=== PATIENT | female | born 1940 | race Caucasian/White ===

== ENCOUNTER 2018-02-24 17:22 | Observation (INO) | payer MEDICARE, OTHER ==
[~2018-02-24] VITALS: Ht 160 cm; Wt 94.1 kg
[~2018-02-24 17:22] MED LIST: DIVA500T52 PO; INSU100C14 SQ; INSU100V12 SQ; LANS30CA55 PO; LEVO150T11 PO; LOSA25TA16 PO; PRED10TA23 PO; PRED20TA3 PO; SUCR1ORA5 PO; WARF5TAB76 PO
[2018-02-24 18:09] LABS: BASOPHILS % (AUTO) 1.1 % (0.0-5.0); EOSINOPHILS % (AUTO) 1.6 % (0.0-8.0); HEMATOCRIT 43.8 % (36-48); LYMPHOCYTES % (AUTO) 38.7 % (21.0-51.0); MEAN CORPUSCULAR HEMOGLOBIN 31.8 pg (27.0-33.0); MEAN CORPUSCULAR HGB CONC 34.5 g/dL (32.0-36.0); MEAN CORPUSCULAR VOLUME 92.1 fL (79-99); MONOCYTES % (AUTO) 12.4 % (3.0-13.0); NEUTROPHILS % (AUTO) 46.2 % (40.0-77.0); NUCLEATED RED BLOOD CELLS 0.1 % (0.0-0.19); PLATELET COUNT (AUTO) 259 K/uL (130-400); RED BLOOD CELL COUNT(AUTO) 4.76 MIL/uL (4.00-5.50); RED CELL DISTRIBUTION WIDTH 15.2 % (11.0-15.5); WHITE BLOOD COUNT (AUTO) 8.9 K/uL (4.8-10.8)
[2018-02-24 18:19] LABS: CREATININE 1.2 mg/dL (0.5-1.5); POTASSIUM 3.9 mmol/L (3.5-5.1)
[2018-02-24 18:24] LABS: ALBUMIN 3.3 g/dL (3.5-5.0); BILIRUBIN,TOTAL 1.1 mg/dL (0.2-1.0); TOTAL PROTEIN, SERUM 6.3 g/dL (6.0-8.3)
[2018-02-24] MEDS ORDERED: SODIUM CHLORIDE 0.9% 1000ML 1,000 ML IV ONE (18:24)
[2018-02-24] MEDS ORDERED: METRONIDAZOLE 500MG/100ML BAG 100 ML ONE (23:24)
[2018-02-24] MEDS ORDERED: LEVOFLOXACIN 750 MG/D5W 150 ML 150 ML ONE (23:24)
[2018-02-25] MEDS: SODIUM CHLORIDE 0.9% 1000ML 1,000 ML IV SCH (02:00)
[2018-02-25] MEDS: LEVOFLOXACIN 500 MG/D5W 100 ML 100 ML IV SCH (02:00)
[2018-02-25] MEDS ORDERED: PHARMACY COMMUNICATION MISC SCH (02:00)
[2018-02-25] MEDS ORDERED: PROCHLORPERAZINE EDISYLATE 10 MG/2 ML VIAL IV PRN (02:00)
[2018-02-25 02:45] VITALS: BP 141/65
[2018-02-25] MEDS ORDERED: DEXTROSE 50%-WATER 50 ML DISP.SYRIN IV PRN (03:30)
[2018-02-25] MEDS ORDERED: GLUCAGON 1MG KIT 1 MG ML IM PRN (03:30)
[2018-02-25] MEDS: INSULIN HUMULIN R 100 UNIT/ML 3ML SQ SCH ×4 (06:33→21:00)
[2018-02-25 08:00] VITALS: BP 140/61
[2018-02-25] MEDS: METRONIDAZOLE 500 MG TABLET PO SCH ×2 (09:54→21:47)
[2018-02-25 11:59] VITALS: BP 118/58
[2018-02-25 16:00] VITALS: BP 110/69
[2018-02-25] MEDS ORDERED: CALCIUM CARBONATE 500 MG/5 ML ML PO PRN (16:45)
[2018-02-25 19:29] VITALS: BP 95/52
[2018-02-25] MEDS ORDERED: METO25TA6 PO (19:59)
[2018-02-25] MEDS ORDERED: RANO10003 PO (19:59)
[2018-02-25] MEDS ORDERED: FURO40TA5 PO (19:59)
[2018-02-25] MEDS ORDERED: FLUT1BLS IH (19:59)
[2018-02-25] MEDS ORDERED: INSU100I24 SQ (19:59)
[2018-02-25] MEDS ORDERED: GABA-531 PO (19:59)
[2018-02-25] MEDS ORDERED: POTA-79 PO (19:59)
[2018-02-25] MEDS ORDERED: SUCRALFATE 1 GM/10 ML PO PRN (20:00)
[2018-02-25] MEDS ORDERED: LIDOCAINE HCL 2% VISCOUS 30 ML, MAG HYDROX/AL HYDROX/SIMETH 30 ML, BELLADONNA-PHENOBARB... PO PRN ×3 (20:15)
[2018-02-25] MEDS ORDERED: PANTOPRAZOLE SODIUM 40 MG TABLET.DR PO SCH (20:15)
[2018-02-25] MEDS ORDERED: COMPOUND PO MISCELLANEOUS 1 EACH MISC MISC PRN (20:15)
[2018-02-25] MEDS ORDERED: ALBUTEROL SULFATE 0.083% 2.5 MG/3 ML INH IH PRN (20:15)
[2018-02-25] MEDS ORDERED: WARFARIN SODIUM 5 MG TAB PO SCH (20:15)
[2018-02-25] MEDS ORDERED: LIDOCAINE HCL 2% VISCOUS 60 ML, MAG HYDROX/AL HYDROX/SIMETH 60 ML, DICYCLOMINE HCL 40 MG PO PRN ×3 (20:30)
[2018-02-25] MEDS ORDERED: LOSARTAN 50 MG TABLET PO SCH (21:00)
[2018-02-25] MEDS ORDERED: GABAPENTIN 300 MG CAPSULE PO SCH (21:00)
[2018-02-25] MEDS ORDERED: INSULIN DEGLUDEC 20 UNIT SQ SCH (21:00)
[2018-02-25] MEDS ORDERED: PREDNISONE 5 MG TABLET PO SCH (21:00)
[2018-02-25] MEDS: RANOLAZINE 500 MG TAB.SR.12H PO SCH (21:48)
[2018-02-25] MEDS: METOPROLOL TARTRATE 25 MG TAB PO SCH (21:48)
[2018-02-25 23:30] VITALS: BP 91/47
[2018-02-26] MEDS: ALBUTEROL SULFATE 0.083% 2.5 MG/3 ML INH IH SCH ×3 (00:25→10:57)
[2018-02-26] MEDS: LEVOFLOXACIN 500 MG/D5W 100 ML 100 ML IV SCH (02:07)
[2018-02-26 03:46] VITALS: BP 88/50
[2018-02-26 05:03] LABS: INR 1.03 (0.85-1.15); PROTHROMBIN TIME 10.8 SEC (9.6-11.6)
[2018-02-26] MEDS ORDERED: BUDESONIDE 0.5 MG/2 ML INH IH SCH (06:00)
[2018-02-26] MEDS ORDERED: LEVOTHYROXINE 150 MCG TABLET PO SCH (06:30)
[2018-02-26] MEDS: INSULIN HUMULIN R 100 UNIT/ML 3ML SQ SCH ×2 (07:30→11:30)
[2018-02-26 08:24] VITALS: BP 90/50
[2018-02-26] MEDS ORDERED: PREDNISONE 5 MG TABLET PO SCH (09:00)
[2018-02-26] MEDS ORDERED: POTASSIUM CHLORIDE 20 MEQ ERTAB PO SCH (09:00)
[2018-02-26] MEDS: METOPROLOL TARTRATE 25 MG TAB PO SCH (09:00)
[2018-02-26] MEDS: RANOLAZINE 500 MG TAB.SR.12H PO SCH (09:49)
[2018-02-26] MEDS: METRONIDAZOLE 500 MG TABLET PO SCH (09:49)
[2018-02-26] MEDS ORDERED: INSULIN GLARGINE 100 UNITS/ML 10 ML VIAL SQ SCH (10:45)
[2018-02-26] MEDS ORDERED: METHYLPREDNISOLONE SOD SUCC 125MG/2ML VIAL IVP SCH (10:45)
[2018-02-26] MEDS ORDERED: INSULIN LISPRO 100 UNIT/ML 3ML SQ SCH (10:45)
[2018-02-26] MEDS ORDERED: SODIUM CHLORIDE 0.9% 500ML 500 ML IV SCH ×2 (10:45→12:45)
[2018-02-26] MEDS: SODIUM CHLORIDE 0.9% 1000ML 1,000 ML IV SCH ×2 (10:46→10:49)
[2018-02-26] MEDS ORDERED: METR500T4 PO (10:56)
[2018-02-26] MEDS ORDERED: PRED10TA3 PO (10:56)
[2018-02-26 12:20] VITALS: BP 107/50
[2018-02-26] MEDS ORDERED: WARFARIN SODIUM 5 MG TAB PO SCH (17:00)
== END 2018-02-26 16:55 | disposition home or self-care (01) ==
LOC: EDH 17:22 → EDHIP 02-25 01:00 → 3DH 02-25 01:59
PROVIDERS: ADMIT Internal Medicine; ATTEND Internal Medicine
DX: K56.7 Ileus, unspecified (principal); J44.9 Chronic obstructive pulmonary disease, unspecified; E03.9 Hypothyroidism, unspecified; K21.9 Gastro-esophageal reflux disease without esophagitis; M15.9 Polyosteoarthritis, unspecified; J30.9 Allergic rhinitis, unspecified; M81.0 Age-related osteoporosis without current pathological fracture; I25.10 Atherosclerotic heart disease of native coronary artery without angina pectoris; I13.10 Hypertensive heart and chronic kidney disease without heart failure, with stage 1 through stage 4 chronic kidney disease, or unspecified chronic kidney disease; N18.2 Chronic kidney disease, stage 2 (mild); E11.22 Type 2 diabetes mellitus with diabetic chronic kidney disease; E11.42 Type 2 diabetes mellitus with diabetic polyneuropathy; E11.65 Type 2 diabetes mellitus with hyperglycemia; E66.01 Morbid (severe) obesity due to excess calories; D68.69 Other thrombophilia; E78.2 Mixed hyperlipidemia; E86.0 Dehydration; G44.009 Cluster headache syndrome, unspecified, not intractable; G45.9 Transient cerebral ischemic attack, unspecified; I25.2 Old myocardial infarction; I82.401 Acute embolism and thrombosis of unspecified deep veins of right lower extremity; K57.30 Diverticulosis of large intestine without perforation or abscess without bleeding; M75.42 Impingement syndrome of left shoulder; T38.0X5A Adverse effect of glucocorticoids and synthetic analogues, initial encounter; F17.210 Nicotine dependence, cigarettes, uncomplicated; Z68.37 Body mass index [BMI] 37.0-37.9, adult; Z80.3 Family history of malignant neoplasm of breast; Z82.5 Family history of asthma and other chronic lower respiratory diseases; Z86.718 Personal history of other venous thrombosis and embolism; Z86.73 Personal history of transient ischemic attack (TIA), and cerebral infarction without residual deficits; Z90.49 Acquired absence of other specified parts of digestive tract; Z79.01 Long term (current) use of anticoagulants; Z79.4 Long term (current) use of insulin; Z83.3 Family history of diabetes mellitus; Z96.653 Presence of artificial knee joint, bilateral; Z86.010 Personal history of colon polyps
CPT/HCPCS: 36415 ×2; 71045; 74018; 74176; 80053; 82550; 82948 ×6; 83605; 84484; 85025; 85610; 87040 ×2; 93005; 94640 ×4; 94664; 96361; 96365; 96372; 96375; 97116; 97161; 99285; G0378 ×40; G8978; G8979; G8980; G8981; G8982; G8983; J1815; J1956 ×2; J2930; J3490; J7030; J7040; J7512 ×2

== ENCOUNTER 2018-07-18 16:00 | Observation (INO) | payer OTHER ==
[~2018-07-18] VITALS: Ht 162.6 cm; Wt 85.5 kg
[2018-07-18 12:11] LABS: EOSINOPHILS % (AUTO) 3.2 % (0.0-8.0); HEMATOCRIT 44.7 % (36-48); LYMPHOCYTES % (AUTO) 33.9 % (21.0-51.0); MEAN CORPUSCULAR HEMOGLOBIN 31.3 pg (27.0-33.0); MEAN CORPUSCULAR HGB CONC 33.5 g/dL (32.0-36.0); MEAN CORPUSCULAR VOLUME 93.7 fL (79-99); MONOCYTES % (AUTO) 8.5 % (3.0-13.0); NEUTROPHILS % (AUTO) 53.4 % (40.0-77.0); PLATELET COUNT (AUTO) 310 K/uL (130-400); RED BLOOD CELL COUNT(AUTO) 4.77 MIL/uL (4.00-5.50); RED CELL DISTRIBUTION WIDTH 14.3 % (11.0-15.5); WHITE BLOOD COUNT (AUTO) 7.9 K/uL (4.8-10.8)
[2018-07-18 12:19] VITALS: BP 118/61
[2018-07-18 12:22] LABS: INR 1.81 (0.85-1.15); POTASSIUM 4.3 mmol/L (3.5-5.1); PROTHROMBIN TIME 18.8 SEC (9.6-11.6)
[~2018-07-18 16:00] MED LIST changes: +ALBU18HF7 IH; +ALBU2.5V2 IH; +ASPI-1181 PO; +CALCITONIN SALMON NASAL; +DILT30 PO; -DIVA500T52 PO; +ENOX80DI8 SQ; +FLUT1BLS IH; +FOLIC ACID PO; +FURO40TA5 PO; +GABA-529 PO; -INSU100C14 SQ; +INSU100I24 SQ; -INSU100V12 SQ; +ISOS20TA7 PO; -LANS30CA55 PO; -LEVO150T11 PO; +LEVO175T9 PO; -LOSA25TA16 PO; +MAGN400C PO; +MELA10CA2 PO; +METO25TA6 PO; +NITR0.4T50 SL; +PANT40TA25 PO; +POTA20TA12 PO; -PRED10TA23 PO; -PRED20TA3 PO; +PRED5TAB PO; +PREDNISONE PO; +RANO10003 PO; -SUCR1ORA5 PO; +SUCR1TAB2 PO; +UBID100C10 PO; +VITAMIN D3 PO; +WARF2.5T47 PO
[2018-07-19] MEDS ORDERED: CLINDAMYCIN 900 MG/D5% WATER 50 ML IV SCH (06:00)
--- NOTE | 2018-07-19 11:18 | NUR ---
NOTE REPORTED PT/INR, ORDERS TO REPEAT IN AM.
[2018-07-20] VITALS (31 sets, daily range): BP systolic 66–118; BP diastolic 39–82
[2018-07-20] MEDS ORDERED: BUPIVACAINE/EPI/PF 0.25% 50 ML VIAL ONE (06:42)
[2018-07-20] MEDS ORDERED: DURAMORPH PF1 MG/ML 10ML AMP IV ONE (06:42)
[2018-07-20] MEDS ORDERED: BACITRACIN 50,000 UNIT VIAL ONE (06:42)
[2018-07-20] MEDS ORDERED: THROMBIN-JMI 20000 UNIT KIT TP ONE (06:43)
[2018-07-20] MEDS ORDERED: CLINDAMYCIN 900 MG/D5% WATER 50 ML IV ONE (06:49)
[2018-07-20] MEDS ORDERED: SODIUM CHLORIDE 0.9% 1000ML 1,000 ML IV ONE (06:49)
[2018-07-20] MEDS ORDERED: LIDOCAINE PF 2% 5ML ABBOJECT ONE (06:51)
[2018-07-20] MEDS ORDERED: SUCCINYLCHOLINE 200MG/10ML SYR ONE (06:51)
[2018-07-20] MEDS ORDERED: GLYCOPYRROLATE 1 MG/5 ML SYRINGE ONE (06:52)
[2018-07-20] MEDS ORDERED: NEOSTIGMINE 5MG/5ML SYR IV ONE (06:52)
[2018-07-20] MEDS ORDERED: PROPOFOL 10 MG/ML 20ML VIAL IV ONE (06:52)
[2018-07-20] MEDS ORDERED: FENTANYL CITRATE PF 50 MCG/1 ML 2ML VIAL ONE ×2 (06:52→08:46)
[2018-07-20] MEDS ORDERED: ONDANSETRON HCL 4 MG/2 ML VIAL ONE (06:52)
[2018-07-20] MEDS ORDERED: MIDAZOLAM HCL 1 MG/ML 2ML VIAL ONE (06:52)
[2018-07-20] MEDS ORDERED: DEXAMETHASONE SOD PHOSPHATE 10MG/ML 1ML VIAL ONE ×2 (06:52→06:57)
[2018-07-20] MEDS ORDERED: ROCURONIUM 10MG/1ML SYR 10 MG/ML ML ONE (06:52)
[2018-07-20] MEDS ORDERED: PHENYLEPHRINE HCL 10 MG/ML 1ML VIAL IV ONE ×2 (06:57→08:05)
[2018-07-20 07:31] LABS: INR 1.14 (0.85-1.15); PROTHROMBIN TIME 11.9 SEC (9.6-11.6)
[2018-07-20] MEDS ORDERED: EPHEDRINE SULFATE 50 MG/ML AMPULE ONE (07:38)
[2018-07-20] MEDS ORDERED: EPINEPHRINE 1 MG/ML AMPULE ONE (08:08)
[2018-07-20] MEDS ORDERED: DOPAMINE HCL 400 MG/D5%-WATER 250 ML IV ONE (08:14)
[2018-07-20] MEDS ORDERED: LIDOCAINE HCL 4% LTA SOL 4 ML VIAL ONE (10:23)
[2018-07-20] MEDS: LACTATED RINGERS 1000ML 1,000 ML IV SCH (10:47)
[2018-07-20] MEDS ORDERED: PROMETHAZINE HCL 25 MG/ML 1ML AMPULE IM PRN (11:00)
[2018-07-20] MEDS: CLINDAMYCIN 900 MG/D5% WATER 50 ML IV SCH ×2 (11:00→14:53)
[2018-07-20] MEDS ORDERED: HYDROCODONE/ACETAMINOPHEN 5/325 MG TAB PO PRN (11:00)
[2018-07-20] MEDS ORDERED: SUB TO ALBUTEROL 2.5MG/3ML NEBULES PER P&T IH PRN (11:00)
[2018-07-20] MEDS ORDERED: NITROGLYCERIN 0.4 MG SL TAB SL PRN (11:00)
[2018-07-20] MEDS ORDERED: NON-FORMULARY MEDICATION 1 EACH (Albuterol Sulfate 2.5 MG) IH PRN (11:00)
[2018-07-20] MEDS ORDERED: SODIUM CHLORIDE 0.9% 10 ML VIAL IVP PRN (11:00)
[2018-07-20] MEDS ORDERED: MORPHINE SULFATE 2 MG/ML 1ML SYG IVP PRN (11:00)
[2018-07-20] MEDS: DEXAMETHASONE SOD PHOSPHATE 4 MG/ML 1ML VIAL IVP SCH ×3 (11:00→22:51)
[2018-07-20] MEDS: CALCITONIN 3.7 ML AEROSOL NS SCH (12:00)
[2018-07-20] MEDS: IPRATROPIUM/ALBUTEROL SULFATE 3 ML SOLUTION IH SCH ×2 (12:00→19:51)
[2018-07-20] MEDS: FUROSEMIDE 40 MG TABLET PO SCH (12:00)
--- NOTE | 2018-07-20 15:18 | NUR ---
DCP CM met with pt discussed dc plans. Pt is independent prior to surgery, lives at home alone. Has a private caregiver daily, walker, cane, rollator walker, handicapped shower. Denies any other equipments/services. Pt feels safe to go back home, still drives, caregiver able to assist with transportation and needs as necessary. Offered poss short term placement for rehab, pt declined. DC plan to home once stable. CM to cont to follow up. Addendum: 07/20/18 at 1521 by COLT TIWARI LVN CM Amended: Links added.
[2018-07-20] MEDS ORDERED: NAPROXEN 500 MG TABLET PO PRN (16:45)
[2018-07-20] MEDS: BUDESONIDE 0.5 MG/2 ML INH IH SCH (19:51)
[2018-07-20] MEDS ORDERED: INSULIN DEGLUDEC 30 UNIT SQ SCH (21:00)
[2018-07-20] MEDS ORDERED: MELATONIN 10 MG PO SCH (21:00)
[2018-07-20] MEDS ORDERED: PREDNISONE 5 MG TABLET PO SCH (21:00)
[2018-07-20] MEDS: RANOLAZINE 500 MG TAB.SR.12H PO SCH (21:00)
[2018-07-20] MEDS: DILTIAZEM HCL 60 MG TABLET PO SCH (22:44)
[2018-07-20] MEDS: GABAPENTIN 100 MG CAPSULE PO SCH (22:44)
[2018-07-20] MEDS: METOPROLOL TARTRATE 25 MG TAB PO SCH (22:44)
[2018-07-20] MEDS: INSULIN HUMULIN R 100 UNIT/ML 3ML SQ SCH (22:53)
[2018-07-21] VITALS: BP 119/58
[2018-07-21] MEDS: LACTATED RINGERS 1000ML 1,000 ML IV SCH ×2 (00:07→11:50)
[2018-07-21] MEDS: IPRATROPIUM/ALBUTEROL SULFATE 3 ML SOLUTION IH SCH ×3 (00:25→10:47)
[2018-07-21 04:00] VITALS: BP 113/55
[2018-07-21] MEDS: INSULIN HUMULIN R 100 UNIT/ML 3ML SQ SCH ×3 (06:12→16:58)
[2018-07-21] MEDS ORDERED: LEVOTHYROXINE 75 MCG TABLET ONE (06:15)
[2018-07-21] MEDS ORDERED: PANTOPRAZOLE SODIUM 40 MG TABLET.DR PO ONE (06:15)
[2018-07-21] MEDS ORDERED: LEVOTHYROXINE 100 MCG TABLET ONE (06:16)
[2018-07-21] MEDS: DEXAMETHASONE SOD PHOSPHATE 4 MG/ML 1ML VIAL IVP SCH ×3 (06:26→16:59)
[2018-07-21] MEDS: BUDESONIDE 0.5 MG/2 ML INH IH SCH (06:37)
[2018-07-21] MEDS ORDERED: PANTOPRAZOLE SODIUM 40 MG TABLET.DR PO SCH (07:30)
[2018-07-21] MEDS ORDERED: LEVOTHYROXINE 75 MCG TABLET PO SCH (07:30)
[2018-07-21] MEDS ORDERED: LEVOTHYROXINE 100 MCG TABLET PO SCH (07:30)
[2018-07-21 08:00] VITALS: BP 140/53
[2018-07-21] MEDS ORDERED: MAGNESIUM OXIDE 400 MG TABLET PO SCH (09:00)
[2018-07-21] MEDS ORDERED: VITAMIN D3 50 MCG PO SCH (09:00)
[2018-07-21] MEDS ORDERED: PREDNISONE 5 MG TABLET PO SCH (09:00)
[2018-07-21] MEDS ORDERED: FOLIC ACID 1 MG TABLET PO SCH (09:00)
[2018-07-21] MEDS ORDERED: ISOSORBIDE MONONITRATE 20 MG TABLET PO SCH (09:00)
[2018-07-21] MEDS ORDERED: POTASSIUM CHLORIDE 20 MEQ ERTAB PO SCH (09:00)
[2018-07-21] MEDS ORDERED: ***HM***(Ubidecarenone (Coq-10) 100 MG) PO SCH (09:00)
[2018-07-21] MEDS ORDERED: ASPIRIN 81 MG EC TAB PO SCH (09:00)
[2018-07-21] MEDS ORDERED: FLUTICASONE/VILANTEROL 1 EACH BLST.W.DEV IH SCH (09:00)
[2018-07-21] MEDS: METOPROLOL TARTRATE 25 MG TAB PO SCH (11:30)
[2018-07-21] MEDS: RANOLAZINE 500 MG TAB.SR.12H PO SCH (11:32)
[2018-07-21] MEDS: GABAPENTIN 100 MG CAPSULE PO SCH (11:33)
[2018-07-21] MEDS: DILTIAZEM HCL 60 MG TABLET PO SCH (11:34)
[2018-07-21] MEDS: FUROSEMIDE 40 MG TABLET PO SCH ×2 (11:35→11:50)
[2018-07-21 11:37] VITALS: BP 120/74
[2018-07-21 11:43] VITALS: BP 120/74
[2018-07-21] MEDS: CALCITONIN 3.7 ML AEROSOL NS SCH (11:50)
--- NOTE | 2018-07-21 13:30 | NUR ---
DUE TO VOID PATIENT ABLE TO VOID URINE, APPROXIMATELY 400CC CLEAR YELLOW COLORED URINE, IN TOILET AFTER URINE LAMAS CATHETER REMOVAL AT 0630 TODAY.
--- NOTE | 2018-07-21 14:00 | NUR ---
DISCHARGE DISCHARGE TEACHING PROVIDED TO PATIENT. DR. RINCON DISCHARGE TEACHING PROVIDED TO PATIENT. PATIENT VERBALIZED UNDERSTANDING OF DISCHARGE TEACHING. STAPLE REMOVAL KIT PROVIDED TO PATIENT AND INSTRUCTED TO BRING WITH HER TO SCHEDULED F/U WITH DR. RINCON. YESTERDAY, 07/20/18, I SPOKE TO MARCELINA OF AND WAS TOLD THAT HOME HEALTH WAS SET UP FOR PATIENT AT DR. RINCON'S OFFICE. PATIENT TOLD ME DR. RINCON INSTRUCTED HER TO HOLD ON COUMADIN AND MD WOULD SEND A RX FOR LOVENOX TO PATIENTS PHARMACY. REMOVED DAY DRAIN FROM LEFT LOWER BACK, NO RESISTANCE NOTED UPON REMOVAL, DAY CATHETER TIP INTACT. APPLIED STERILE 4X4 GAUZE AND TAPE OVER DAY DRAIN REMOVAL SITE. PERFORMED LOWER BACK INCISION DRESSING CHANGE. LOWER BACK INCISION SITE APPROXIMATED, 19 BOBBY INTACT, NO SWELLING OR REDNESS NOTED. CLEANSED WITH BETADINE AND APPLIED STERILE NON ADHERENT GAUZE OVER LOWER BACK INCISION AND SECURED WITH TAPE. PATIENT TOLERATED DRESSING CHANGE WELL. REMOVED 20G IV FROM LEFT FA, CATHETER INTACT. PATIENT AWAITING HER FRIEND TO PICK HER UP.
--- NOTE | 2018-07-21 14:23 | NUR ---
RD Notification RD notification for patient allergies. Patient food allergies: Avocado, squash, chocolate, peanut, soy, rutabega. Patient Postop multiple procedures. Patient tolerating 75gm CC Diet with no report of GI distress and PO intake at 75-100%. Patient LBM 07/19/18. Patient monitored labs: GFR 57, Glu 173. Patient with questions concerning dietary recommendations;RD provided dietary education with reference materials and handouts. RD to continue to monitor. Please notify RD as nutritional concerns arise. Thank you. Addendum: 07/21/18 at [address] RD Amended: Links added.
== END 2018-07-21 17:30 | disposition home or self-care (01) ==
LOC: EDSTATUS 16:00 → DAHIP 07-20 05:34 → 4BH 07-20 13:21
PROVIDERS: ADMIT Neurological Surgery; ATTEND Neurological Surgery
DX: M48.061 Spinal stenosis, lumbar region without neurogenic claudication (principal); Z79.52 Long term (current) use of systemic steroids; Z86.718 Personal history of other venous thrombosis and embolism; Z79.899 Other long term (current) drug therapy; Z88.5 Allergy status to narcotic agent; Z88.0 Allergy status to penicillin; Z88.8 Allergy status to other drugs, medicaments and biological substances
CPT/HCPCS: 36415 ×2; 63047; 63048 ×2; 72020; 80048; 82948 ×7; 85025; 85610 ×2; 94640 ×6; 94664; 96365; 96372 ×2; 96375; 96376 ×2; A4344; A4510; A4600; A4649 ×4; G0378 ×37; J0171; J0330; J1100 ×6; J1265; J1815 ×3; J2001; J2250; J2274; J2370 ×2; J2405; J2704; J2710; J3010 ×2; J3490 ×5; J7030 ×2; J7040; J7120; J7512 ×2

== ENCOUNTER → 2018-10-21 | Outpatient (CLI) | payer OTHER ==
[~2018-10-21] MED LIST changes: -DILT30 PO; -ENOX80DI8 SQ; -FOLIC ACID PO; -FURO40TA5 PO; +INSU100I3 SQ; -ISOS20TA7 PO; -MAGN400C PO; -MELA10CA2 PO; +PRED10TA23 PO; -PRED5TAB PO; -PREDNISONE PO
== END | disposition home or self-care (01) ==
LOC: RAH 11:43
PROVIDERS: ATTEND Internal Medicine
DX: R05 Cough (principal)
CPT/HCPCS: 71046

== ENCOUNTER 2019-01-17 10:56 | Emergency (ER) | payer OTHER ==
[2019-01-17] MEDS ORDERED: METHYLPREDNISOLONE SOD SUCC 125MG/2ML VIAL ONE (11:16)
[2019-01-17] MEDS ORDERED: IPRATROPIUM/ALBUTEROL SULFATE 3 ML SOLUTION IH ONE (11:24)
[2019-01-17 11:39] LABS: BASOPHILS % (AUTO) 0.9 % (0.0-5.0); EOSINOPHILS % (AUTO) 1.3 % (0.0-8.0); HEMATOCRIT 45.5 % (36-48); LYMPHOCYTES % (AUTO) 21.7 % (21.0-51.0); MEAN CORPUSCULAR HEMOGLOBIN 32.1 pg (27.0-33.0); MEAN CORPUSCULAR HGB CONC 34.1 g/dL (32.0-36.0); MEAN CORPUSCULAR VOLUME 94.1 fL (79-99); MONOCYTES % (AUTO) 8.3 % (3.0-13.0); NEUTROPHILS % (AUTO) 67.8 % (40.0-77.0); NUCLEATED RED BLOOD CELLS 0.1 % (0.0-0.19); PLATELET COUNT (AUTO) 251 K/uL (130-400); RED BLOOD CELL COUNT(AUTO) 4.83 MIL/uL (4.00-5.50); RED CELL DISTRIBUTION WIDTH 14.8 % (11.0-15.5); WHITE BLOOD COUNT (AUTO) 9.4 K/uL (4.8-10.8)
[2019-01-17 11:48] LABS: INR 2.5 (0.85-1.15); PARTIAL THROMBOPLASTIN TIME 36.3 SEC (26.3-35.5); PROTHROMBIN TIME 25.8 SEC (9.6-11.6)
[2019-01-17 12:16] LABS: CREATININE 1.1 mg/dL (0.5-1.5); POTASSIUM 4.6 mmol/L (3.5-5.1)
[2019-01-17 12:21] LABS: ALBUMIN 3.7 g/dL (3.5-5.0); BILIRUBIN,TOTAL 0.8 mg/dL (0.2-1.0)
== END 2019-01-17 14:11 | disposition home or self-care (01) ==
LOC: EDH 10:56
DX: J98.01 Acute bronchospasm (principal); E11.9 Type 2 diabetes mellitus without complications; Z86.73 Personal history of transient ischemic attack (TIA), and cerebral infarction without residual deficits; Z86.718 Personal history of other venous thrombosis and embolism; Z88.5 Allergy status to narcotic agent; Z88.0 Allergy status to penicillin; Z88.1 Allergy status to other antibiotic agents; Z88.6 Allergy status to analgesic agent
CPT/HCPCS: 36415; 71045; 80053; 84484; 85025; 85610; 85730; 93005; 94640; 96374; 99283; J2930

== ENCOUNTER 2019-02-26 12:45 | Observation (INO) | payer OTHER ==
[~2019-02-26] VITALS: Ht 160 cm; Wt 83.0 kg
[2019-02-26] MEDS ORDERED: NITROGLYCERIN 50 MG/D5% WATER 1 BOT ONE (13:04)
[2019-02-26 13:53] LABS: BASOPHILS % (AUTO) 0.7 % (0.0-5.0); EOSINOPHILS % (AUTO) 0.3 % (0.0-8.0); HEMATOCRIT 38.7 % (36-48); LYMPHOCYTES % (AUTO) 26.7 % (21.0-51.0); MEAN CORPUSCULAR HEMOGLOBIN 32.5 pg (27.0-33.0); MEAN CORPUSCULAR HGB CONC 34.5 g/dL (32.0-36.0); MEAN CORPUSCULAR VOLUME 94.4 fL (79-99); MONOCYTES % (AUTO) 7.8 % (3.0-13.0); NEUTROPHILS % (AUTO) 64.5 % (40.0-77.0); PLATELET COUNT (AUTO) 308 K/uL (130-400); WHITE BLOOD COUNT (AUTO) 9.5 K/uL (4.8-10.8)
[2019-02-26 14:00] LABS: CREATININE 1.1 mg/dL (0.5-1.5); POTASSIUM 3.9 mmol/L (3.5-5.1)
[2019-02-26 14:05] LABS: ALBUMIN 3.4 g/dL (3.5-5.0); BILIRUBIN,TOTAL 0.7 mg/dL (0.2-1.0); TOTAL PROTEIN, SERUM 6.1 g/dL (6.0-8.3)
[2019-02-26 14:08] LABS: INR 1.56 (0.85-1.15); PARTIAL THROMBOPLASTIN TIME 28.2 SEC (26.3-35.5); PROTHROMBIN TIME 16.1 SEC (9.6-11.6)
[2019-02-26] MEDS ORDERED: SODIUM CHLORIDE 0.9% 1000ML 1,000 ML IV ONE (14:28)
[2019-02-26] MEDS ORDERED: IOHEXOL-350 75 ML VIAL IV ONE (14:40)
[2019-02-26] MEDS ORDERED: ALBUTEROL SULFATE 0.083% 2.5 MG/3 ML INH IH PRN (16:15)
[2019-02-26] MEDS ORDERED: NITROGLYCERIN 1GM/1 INCH PACKET TD ONE (16:34)
[2019-02-26 17:13] LABS: CREATINE KINASE, TOTAL 31 U/L (21-232); MYOGLOBIN 45 ng/mL (10-92); TROPONIN I < 0.04 ng/mL (0.00-0.06)
[2019-02-26 19:20] VITALS: BP 151/88
[2019-02-26 20:42] LABS: CREATINE KINASE, TOTAL 32 U/L (21-232); MYOGLOBIN 48 ng/mL (10-92); TROPONIN I < 0.04 ng/mL (0.00-0.06)
[2019-02-26] MEDS: NITROGLYCERIN 1GM/1 INCH PACKET TD SCH ×2 (21:00→21:35)
[2019-02-26] MEDS ORDERED: PRED5TAB PO (21:08)
[2019-02-26] MEDS ORDERED: DILT30 PO (21:08)
[2019-02-26] MEDS ORDERED: ISOS20TA7 PO (21:08)
[2019-02-26] MEDS ORDERED: FURO20TA4 PO (21:08)
[2019-02-26] MEDS ORDERED: PRED2.5T PO (21:08)
[2019-02-26] MEDS ORDERED: GABA-529 PO (21:08)
[2019-02-26] MEDS ORDERED: NITROGLYCERIN 0.4 MG SL TAB SL PRN (21:45)
[2019-02-26] MEDS ORDERED: MAG HYDROX/AL HYDROX/SIMETH ES 30 ML SUSP UDCUP PO PRN (21:45)
[2019-02-26] MEDS ORDERED: DIPHENHYDRAMINE HCL 25 MG CAPSULE PO PRN (21:45)
[2019-02-26] MEDS ORDERED: DiphenhydrAMINE HCL 50 MG/ML VIAL IV PRN (21:45)
[2019-02-26] MEDS ORDERED: ONDANSETRON HCL 4 MG/2 ML VIAL IV PRN (21:45)
[2019-02-26] MEDS ORDERED: ACETAMINOPHEN 325 MG TAB PO PRN ×2 (21:45)
[2019-02-26] MEDS ORDERED: LACTULOSE 20 GM/30 ML UDCUP PO PRN (21:45)
--- NOTE | 2019-02-26 21:51 | NUR ---
PAGED Paged Dr Templeton pt c/o of headache.
[2019-02-26] MEDS ORDERED: DEXTROSE 50%-WATER 50 ML DISP.SYRIN IV PRN ×2 (22:00→22:15)
[2019-02-26] MEDS ORDERED: LIDOCAINE HCL-MPF 1% 2ML VIAL IJ PRN (22:00)
[2019-02-26] MEDS ORDERED: POTASSIUM CHLORIDE 20MEQ/100ML 100 ML IV PRN ×2 (22:00→22:15)
[2019-02-26] MEDS: SODIUM CHLORIDE 0.9% 1000ML 1,000 ML IV SCH (22:00)
[2019-02-26] MEDS ORDERED: POTASSIUM CHLORIDE 20 MEQ ERTAB PO PRN ×2 (22:00→22:15)
[2019-02-26] MEDS ORDERED: GLUCAGON 1MG KIT 1 MG ML IM PRN ×2 (22:00→22:15)
[2019-02-26] MEDS ORDERED: POTASSIUM CHLORIDE 10% ELIXIR 20 MEQ/15 ML UDCUP PO PRN ×2 (22:00→22:15)
[2019-02-26] MEDS ORDERED: LIDOCAINE HCL-MPF 1% 2ML VIAL IV PRN (22:15)
[2019-02-26] MEDS ORDERED: IBUPROFEN 200 MG TAB PO PRN (22:15)
[2019-02-26] MEDS ORDERED: IBUPROFEN 200 MG TAB ONE (23:11)
[2019-02-26 23:17] VITALS: BP 108/46
[2019-02-27] MEDS ORDERED: SODIUM CHLORIDE 0.9% 1000ML 1,000 ML IV ONE (01:19)
--- NOTE | 2019-02-27 02:10 | NUR ---
IV Pt started on Ns at 100 ml/hr as per Md order.Assisted to bathroom,states she feels like she has UTI,her urine smells strong and concentrated.
[2019-02-27 02:14] LABS: CREATINE KINASE, TOTAL 30 U/L (21-232); MYOGLOBIN 34 ng/mL (10-92); TROPONIN I < 0.04 ng/mL (0.00-0.06)
[2019-02-27 03:40] VITALS: BP 107/54
[2019-02-27] MEDS: INSULIN HUMULIN R 100 UNIT/ML 3ML SQ SCH ×3 (05:18→16:30)
[2019-02-27] MEDS: SUCRALFATE 1 GM TABLET PO SCH ×3 (06:10→18:19)
[2019-02-27] MEDS ORDERED: LEVOTHYROXINE 100 MCG TABLET PO SCH (06:30)
[2019-02-27] MEDS ORDERED: LEVOTHYROXINE 75 MCG TABLET PO SCH (06:30)
[2019-02-27] MEDS ORDERED: NON-FORMULARY MEDICATION 1 EACH (Levothyroxine Sodium 175 MCG) PO SCH (07:30)
[2019-02-27] MEDS ORDERED: REGADENOSON 0.4 MG/5 ML PF SYG IVP SCH (07:45)
[2019-02-27] MEDS: SODIUM CHLORIDE 0.9% 1000ML 1,000 ML IV SCH (08:00)
[2019-02-27] MEDS ORDERED: PREDNISONE 5 MG TABLET PO SCH ×2 (08:00→17:00)
[2019-02-27 08:30] LABS: INR 1.58 (0.85-1.15); PROTHROMBIN TIME 16.3 SEC (9.6-11.6)
--- NOTE | 2019-02-27 08:45 | NUR ---
C/O CHEST PAIN PATIENT C/O CHESTPAIN RATE OF 6. PATIENT STATED THAT CHESTPAIN HAS BEEN HAPPENING OFF AND ON SINCE YESTERDAY. DENIES FEELING SOB OR DIZZINESS. NITRO SL GIVEN PER MD ORDERS, PLACED ON O2 2LPM VIA NC. AFTER 5 MINUTES PATIENT STATED RELIEF OF CHESTPAIN. THE PATIENT IS SCHEDULED FOR LEXISCAN STRESS TEST TODAY. Addendum: 02/27/19 at 1303 by KEKE URBINA RN RN DR WILLIS MADE AWARE OF PATIENT COMPLAINING OF CHESTPAIN. NO FURTHER ORDERS GIVEN.
[2019-02-27] MEDS ORDERED: ISOSORBIDE MONONITRATE 20 MG TABLET PO SCH (09:00)
[2019-02-27] MEDS ORDERED: RANOLAZINE 500 MG TAB.SR.12H PO SCH (09:00)
[2019-02-27] MEDS ORDERED: ASPIRIN 81 MG EC TAB PO SCH (09:00)
[2019-02-27] MEDS ORDERED: POTASSIUM CHLORIDE 20 MEQ ERTAB PO SCH (09:00)
[2019-02-27] MEDS ORDERED: METOPROLOL TARTRATE 25 MG TAB PO SCH (09:00)
[2019-02-27] MEDS ORDERED: FLU VACC QS2019-20 36MOS UP/PF 60 MCG/0.5 ML ML IM SCH (09:00)
[2019-02-27] MEDS ORDERED: PHARMACY COMMUNICATION MISC SCH (09:00)
[2019-02-27] MEDS ORDERED: BREO ELLIPTA IH SCH (09:00)
[2019-02-27] MEDS ORDERED: ENOXAPARIN SODIUM 30 MG/0.3 ML SQ SCH (09:00)
[2019-02-27] MEDS ORDERED: FAMOTIDINE 20MG TAB 20 MG TAB PO SCH (09:00)
[2019-02-27] MEDS ORDERED: ASPIRIN 325 MG TABLET PO SCH (09:00)
[2019-02-27] MEDS ORDERED: FUROSEMIDE 20 MG TABLET PO SCH (09:00)
[2019-02-27] MEDS ORDERED: DILTIAZEM HCL 60 MG TABLET PO SCH (09:00)
--- NOTE | 2019-02-27 09:15 | NUR ---
LEXISCAN PATIENT TAKEN FOR FIRST PART OF STRESS TEST AT THIS TIME. PATIENT DENIES FEELING CHESTPAIN AT THIS TIME.
[2019-02-27] MEDS ORDERED: CALC400I NASAL (09:25)
[2019-02-27] MEDS ORDERED: FURO40TA5 PO (09:25)
[2019-02-27 11:24] VITALS: BP 146/68
[2019-02-27 11:39] VITALS: BP 143/79
[2019-02-27 11:54] VITALS: BP 146/81
--- NOTE | 2019-02-27 13:04 | NUR ---
LEXISCAN PATIENT TAKEN FOR SECOND PART OF STRESS TEST AT THIS TIME.
--- NOTE | 2019-02-27 13:53 | NUR ---
DCP CM met with pt discussed dc plans. Pt is independent prior to admission, lives at home alone. Pt has a private caregiver daily, walker, cane, rollator walker, handicapped equipped bathroom. Denies any other equipments/services. Pt declined placement. DC plan to home once stable. CM to con to follow up. Addendum: 02/27/19 at 1354 by COLT TIWARI LVN CM Amended: Links added.
[2019-02-27] MEDS ORDERED: WARFARIN SODIUM 2.5 MG TAB PO SCH (17:00)
--- NOTE | 2019-02-27 17:04 | NUR ---
CM Note: regarding lexiscan Charge nurse made aware Tamela Khoury CM Director informed Dr Vee regarding lexiscan to be read today. Pt only met OBS criteria, pending poss dc to home if lexiscan normal. Primary nurse aware. CM to cont to follow up.
[2019-02-27 18:05] VITALS: BP 117/64
[2019-02-27] MEDS ORDERED: PANT40TA25 PO (18:56)
[2019-02-27 20:00] VITALS: BP 138/62
[2019-02-27] MEDS ORDERED: GABAPENTIN 100 MG CAPSULE PO SCH (21:00)
[2019-02-27] MEDS ORDERED: INSULIN GLARGINE 100 UNITS/ML 10 ML VIAL SQ SCH (21:00)
--- NOTE | 2019-02-27 21:00 | NUR ---
Discharged patient at 21:00. Gave discharge instructions, verbalized understanding. Discontinued IV. Catheter intact. Patient leaves in a taxi with belongings.
== END 2019-02-27 20:55 | disposition home or self-care (01) ==
LOC: EDH 12:45 → EDHIP 15:50 → 3CH 19:11
PROVIDERS: ADMIT Internal Medicine; ATTEND Internal Medicine
DX: R55 Syncope and collapse (principal); E03.9 Hypothyroidism, unspecified; I13.10 Hypertensive heart and chronic kidney disease without heart failure, with stage 1 through stage 4 chronic kidney disease, or unspecified chronic kidney disease; N18.2 Chronic kidney disease, stage 2 (mild); E11.21 Type 2 diabetes mellitus with diabetic nephropathy; E11.22 Type 2 diabetes mellitus with diabetic chronic kidney disease; E11.42 Type 2 diabetes mellitus with diabetic polyneuropathy; E27.2 Addisonian crisis; E78.2 Mixed hyperlipidemia; G44.009 Cluster headache syndrome, unspecified, not intractable; I25.10 Atherosclerotic heart disease of native coronary artery without angina pectoris; I25.2 Old myocardial infarction; J44.9 Chronic obstructive pulmonary disease, unspecified; K21.9 Gastro-esophageal reflux disease without esophagitis; M19.90 Unspecified osteoarthritis, unspecified site; M81.0 Age-related osteoporosis without current pathological fracture; G45.9 Transient cerebral ischemic attack, unspecified; Z86.711 Personal history of pulmonary embolism; Z86.718 Personal history of other venous thrombosis and embolism; Z86.73 Personal history of transient ischemic attack (TIA), and cerebral infarction without residual deficits; Z90.49 Acquired absence of other specified parts of digestive tract; Z95.828 Presence of other vascular implants and grafts; Z96.653 Presence of artificial knee joint, bilateral; Z79.01 Long term (current) use of anticoagulants; Z79.4 Long term (current) use of insulin; Z79.51 Long term (current) use of inhaled steroids; Z79.899 Other long term (current) drug therapy; Z80.3 Family history of malignant neoplasm of breast; Z82.3 Family history of stroke; Z82.49 Family history of ischemic heart disease and other diseases of the circulatory system; Z82.5 Family history of asthma and other chronic lower respiratory diseases; Z83.3 Family history of diabetes mellitus; Z23 Encounter for immunization
CPT/HCPCS: 36415 ×2; 71045; 71275; 78452; 80053; 82550 ×4; 82948 ×5; 83874 ×3; 83880; 84484 ×4; 85025; 85610 ×2; 85730; 93005; 93017; 94664; 96360; 96361; 96372; 96374; 99284; A9500 ×2; G0008; G0378 ×20; J1650; J2785; J3490; J7030 ×2; J7512 ×2; Q2035; Q9967

== ENCOUNTER 2019-05-08 14:19 | Observation (INO) | payer OTHER ==
[~2019-05-08] VITALS: Ht 160 cm; Wt 85.7 kg
[~2019-05-08 14:19] MED LIST changes: +CALC400I NASAL; -CALCITONIN SALMON NASAL; +DILT30 PO; +FURO40TA5 PO; +ISOS20TA7 PO; -PRED10TA23 PO; +PRED2.5T PO; +PRED5TAB PO; -VITAMIN D3 PO
[2019-05-08 15:04] LABS: BASOPHILS % (AUTO) 0.5 % (0.0-5.0); EOSINOPHILS % (AUTO) 0.5 % (0.0-8.0); HEMATOCRIT 42.4 % (36-48); LYMPHOCYTES % (AUTO) 18.2 % (21.0-51.0); MEAN CORPUSCULAR HEMOGLOBIN 31.5 pg (27.0-33.0); MEAN CORPUSCULAR HGB CONC 33.5 g/dL (32.0-36.0); MONOCYTES % (AUTO) 9.5 % (3.0-13.0); NEUTROPHILS % (AUTO) 70.2 % (40.0-77.0); PLATELET COUNT (AUTO) 261 K/uL (130-400); RED BLOOD CELL COUNT(AUTO) 4.51 MIL/uL (4.00-5.50); WHITE BLOOD COUNT (AUTO) 13.9 K/uL (4.8-10.8)
[2019-05-08 15:20] LABS: INR 1.89 (0.85-1.15); PARTIAL THROMBOPLASTIN TIME 43.2 SEC (26.3-35.5); PROTHROMBIN TIME 19.4 SEC (9.6-11.6)
[2019-05-08] MEDS ORDERED: SODIUM CHLORIDE 0.9% 1000ML 1,000 ML IV ONE ×2 (15:31→18:30)
[2019-05-08 16:26] LABS: CARBON DIOXIDE 24 mmol/L (21-32); CHLORIDE 101 mmol/L (101-111); CREATININE 1.1 mg/dL (0.5-1.5); GLOMERULAR FILTR. RATE CALC 51 mL/min (>60); GLUCOSE,RANDOM 140 mg/dL (70-105); SODIUM SERUM 138 mmol/L (136-145); UREA NITROGEN, BLOOD 12 mg/dL (7-18)
[2019-05-08 16:30] LABS: APPEARANCE,URINE CLOUDY (CLEAR); COLOR,URINE YELLOW (YELLOW)
[2019-05-08 16:31] LABS: BILIRUBIN,URINE SMALL (NEGATIVE); GLUCOSE, URINE (UA) NEGATIVE (NEGATIVE); KETONES,URINE 40 mg/dL (NEGATIVE); LEUKOCYTE ESTERASE ,URINE SMALL (NEGATIVE); NITRATE,URINE NEGATIVE (NEGATIVE); OCCULT BLOOD,URINE LARGE (NEGATIVE); PH,URINE 5.5 (5.0-8.0); PROTEIN,URINE TRACE mg/dL (NEGATIVE); UROBILINOGEN,URINE 0.2 mg/dL (0.2-1.0)
[2019-05-08 16:32] LABS: BACTERIA,URINE Many /HPF (None Seen); RBC,URINE None Seen /HPF (0-1)
[2019-05-08 16:36] LABS: ALANINE AMINOTRANSFERASE 22 U/L (12-78); ALBUMIN 3.2 g/dL (3.5-5.0); ASPARTATE AMINOTRANSFERASE 16 U/L (10-37); BILIRUBIN,TOTAL 1.6 mg/dL (0.2-1.0); CREATINE KINASE, TOTAL 39 U/L (21-232); MYOGLOBIN 46 ng/mL (10-92); TOTAL PROTEIN, SERUM 6.8 g/dL (6.0-8.3); TROPONIN I < 0.04 ng/mL (0.00-0.06)
[2019-05-08] MEDS ORDERED: ASPIRIN 325 MG TABLET ONE (17:30)
[2019-05-08] MEDS ORDERED: LEVOFLOXACIN 500 MG/D5W 100 ML 100 ML ONE (17:30)
[2019-05-08] MEDS ORDERED: METHYLPREDNISOLONE SOD SUCC 125MG/2ML VIAL ONE (18:29)
[2019-05-08] MEDS ORDERED: SODIUM CHLORIDE 0.9% 1000ML 1,000 ML IV SCH ×2 (19:45→23:52)
[2019-05-08 20:50] VITALS: BP 131/55
[2019-05-08] MEDS: INSULIN R PO SS1 SQ SCH (21:00)
[2019-05-08] MEDS ORDERED: ALBUTEROL SULFATE 0.083% 2.5 MG/3 ML INH IH PRN (23:45)
[2019-05-09] VITALS (7 sets, daily range): BP systolic 102–124; BP diastolic 52–61
[2019-05-09] MEDS ORDERED: POTASSIUM CHLORIDE 20MEQ/100ML 100 ML IV PRN
[2019-05-09] MEDS ORDERED: MAG HYDROX/AL HYDROX/SIMETH ES 30 ML SUSP UDCUP PO PRN
[2019-05-09] MEDS ORDERED: LACTULOSE 20 GM/30 ML UDCUP PO PRN
[2019-05-09] MEDS ORDERED: LIDOCAINE HCL-MPF 1% 2ML VIAL IV PRN
[2019-05-09] MEDS ORDERED: DEXTROSE 50%-WATER 50 ML DISP.SYRIN IV PRN
[2019-05-09] MEDS ORDERED: ONDANSETRON HCL 4 MG/2 ML VIAL IV PRN
[2019-05-09] MEDS ORDERED: DiphenhydrAMINE HCL 50 MG/ML VIAL IV PRN
[2019-05-09] MEDS ORDERED: POTASSIUM CHLORIDE 20 MEQ ERTAB PO PRN
[2019-05-09] MEDS ORDERED: POTASSIUM CHLORIDE 10% ELIXIR 20 MEQ/15 ML UDCUP PO PRN
[2019-05-09] MEDS ORDERED: DIPHENHYDRAMINE HCL 25 MG CAPSULE PO PRN
[2019-05-09] MEDS ORDERED: GUAIFENESIN-DM 200/20 MG 10 ML PO PRN
[2019-05-09] MEDS ORDERED: GLUCAGON 1MG KIT 1 MG ML IM PRN
[2019-05-09] MEDS ORDERED: METHYLPREDNISOLONE SOD SUCC 125MG/2ML VIAL IVP SCH (02:00)
--- NOTE | 2019-05-09 03:14 | NUR ---
Pt c/o pain Paged md iron pellet tester for pt. c/o 09/30 burning pain to bladder; spoke to answering service, pending call back.
[2019-05-09] MEDS ORDERED: PHENAZOPYRIDINE HCL 200 MG TABLET PO PRN (04:00)
[2019-05-09] MEDS: INSULIN R PO SS1 SQ SCH ×3 (06:41→16:47)
[2019-05-09 06:54] LABS: INR 1.96 (0.85-1.15); PROTHROMBIN TIME 20.1 SEC (9.6-11.6)
[2019-05-09] MEDS: PHARMACY COMMUNICATION MISC SCH ×2 (08:00→16:00)
[2019-05-09] MEDS ORDERED: PRED5TAB PO (08:46)
[2019-05-09] MEDS ORDERED: TIOT4MIS5 IH (08:49)
[2019-05-09] MEDS ORDERED: POTASSIUM CHLORIDE 20 MEQ ERTAB PO SCH (09:00)
[2019-05-09] MEDS ORDERED: FLUTICASONE/VILANTEROL 1 EACH BLST.W.DEV IH SCH (09:00)
[2019-05-09] MEDS ORDERED: DILTIAZEM HCL 60 MG TABLET PO SCH (09:00)
[2019-05-09] MEDS ORDERED: PANTOPRAZOLE SODIUM 40 MG TABLET.DR PO SCH (09:00)
[2019-05-09] MEDS ORDERED: RANOLAZINE 500 MG TAB.SR.12H PO SCH (09:00)
[2019-05-09] MEDS ORDERED: METOPROLOL TARTRATE 25 MG TAB PO SCH (09:00)
[2019-05-09] MEDS ORDERED: ISOSORBIDE MONONITRATE 20 MG TABLET PO SCH (09:00)
[2019-05-09] MEDS ORDERED: PHEN-846 PO (09:10)
[2019-05-09] MEDS ORDERED: PRED10TA3 PO (09:10)
[2019-05-09] MEDS ORDERED: LEVO500T2 PO (09:10)
--- NOTE | 2019-05-09 09:24 | NUR ---
CHART REVIEWED AND DISCUSSED W PER DR. WILLIS, PLAN ON DCING THIS AFTERNOON AND WILL FOLLOW UP ON CULTURES
[2019-05-09] MEDS ORDERED: WARFARIN SODIUM 2.5 MG TAB PO SCH (10:30)
[2019-05-09] MEDS: SUCRALFATE 1 GM TABLET PO SCH ×3 (10:35→16:45)
[2019-05-09] MEDS ORDERED: PREDNISONE 20 MG TABLET PO SCH (13:00)
--- NOTE | 2019-05-09 14:19 | NUR ---
DCP CM met with pt discussed dc plans. Pt is independent prior to admission, lives at home alone. Pt has a private caregiver daily, nebulizer machine, cane, walker, rollator walker, handicapped restroom. Feels safe to go back home, arranges own needs, caregiver able to assist with transportation as necessary. DC plan to home once stable. CM to cont to follow up. Addendum: 05/09/19 at 1422 by COLT TIWARI LVN CM Amended: Links added.
[2019-05-09] MEDS ORDERED: LEVOFLOXACIN 500 MG/D5W 100 ML 100 ML IV SCH (15:00)
--- NOTE | 2019-05-09 16:24 | NUR ---
Nutrition Education RD consulted due food/ drug nutrient interaction. Pt currently on Coumadin medication. She stated she has been on Coumadin for several years now and is familiar with Vitamin K foods and Coumadin interaction. RD encouraged patient to consume consistent amounts of Vitamin K foods from day to day for as long as on this medication. Patient is familiar and verbalized understanding. Education materials were provided. Thank you. Addendum: 05/09/19 at [address] Amended: Links added.
[2019-05-09] MEDS ORDERED: GABAPENTIN 100 MG CAPSULE PO SCH (21:00)
[2019-05-10] MEDS ORDERED: LEVOTHYROXINE 88 MCG TABLET PO SCH (06:30)
[2019-05-10] MEDS ORDERED: FLUTICASONE/VILANTEROL 1 EACH BLST.W.DEV IH SCH (09:00)
== END 2019-05-09 19:16 | disposition home or self-care (01) ==
LOC: EDH 14:19 → EDHIP 17:21 → 3BH 19:47
PROVIDERS: ADMIT Internal Medicine; ATTEND Internal Medicine
DX: N30.91 Cystitis, unspecified with hematuria (principal); E86.0 Dehydration; R55 Syncope and collapse; J45.909 Unspecified asthma, uncomplicated; E78.2 Mixed hyperlipidemia; M19.90 Unspecified osteoarthritis, unspecified site; M81.0 Age-related osteoporosis without current pathological fracture; I25.10 Atherosclerotic heart disease of native coronary artery without angina pectoris; I13.10 Hypertensive heart and chronic kidney disease without heart failure, with stage 1 through stage 4 chronic kidney disease, or unspecified chronic kidney disease; E11.22 Type 2 diabetes mellitus with diabetic chronic kidney disease; E11.21 Type 2 diabetes mellitus with diabetic nephropathy; N18.2 Chronic kidney disease, stage 2 (mild); E11.42 Type 2 diabetes mellitus with diabetic polyneuropathy; E03.9 Hypothyroidism, unspecified; K21.9 Gastro-esophageal reflux disease without esophagitis; I25.2 Old myocardial infarction; D68.59 Other primary thrombophilia; Z86.711 Personal history of pulmonary embolism; Z86.718 Personal history of other venous thrombosis and embolism; Z95.828 Presence of other vascular implants and grafts; Z86.73 Personal history of transient ischemic attack (TIA), and cerebral infarction without residual deficits; Z90.89 Acquired absence of other organs; Z90.49 Acquired absence of other specified parts of digestive tract; Z79.82 Long term (current) use of aspirin; Z79.51 Long term (current) use of inhaled steroids; Z79.4 Long term (current) use of insulin; Z79.01 Long term (current) use of anticoagulants; Z79.899 Other long term (current) drug therapy; Z91.010 Allergy to peanuts; Z88.2 Allergy status to sulfonamides; Z88.1 Allergy status to other antibiotic agents; Z88.0 Allergy status to penicillin; Z88.8 Allergy status to other drugs, medicaments and biological substances; Z91.018 Allergy to other foods; Z88.6 Allergy status to analgesic agent
CPT/HCPCS: 36415 ×2; 71045; 80053; 81001; 82550; 82948 ×3; 83605; 83874; 84145; 84484; 85025; 85610 ×2; 85730; 87040 ×2; 87077; 87088; 87186; 87804 ×2; 93005; 94664; 96361; 96365; 96372; 96375; 99284; G0378 ×19; J1815 ×3; J1956 ×2; J2930 ×2; J7030 ×2

== ENCOUNTER 2019-05-30 08:51 | Emergency (ER) | payer OTHER ==
[~2019-05-30 08:51] MED LIST changes: -ALBU18HF7 IH; -INSU100I3 SQ; +LEVO500T2 PO; +PHEN-846 PO; +PRED10TA3 PO; -PRED2.5T PO; -PRED5TAB PO; -RANO10003 PO; +TIOT4MIS5 IH; -UBID100C10 PO
[2019-05-30] MEDS ORDERED: KETOROLAC TROMETHAMINE 15MG/ML ONE (09:38)
== END 2019-05-30 13:02 | disposition home or self-care (01) ==
LOC: EDH 08:51
DX: S22.41XA Multiple fractures of ribs, right side, initial encounter for closed fracture (principal); E11.9 Type 2 diabetes mellitus without complications; M19.90 Unspecified osteoarthritis, unspecified site; J45.909 Unspecified asthma, uncomplicated; I25.2 Old myocardial infarction; Z88.1 Allergy status to other antibiotic agents; Z86.73 Personal history of transient ischemic attack (TIA), and cerebral infarction without residual deficits; Z88.0 Allergy status to penicillin; Z88.6 Allergy status to analgesic agent; Z91.018 Allergy to other foods; Z90.49 Acquired absence of other specified parts of digestive tract; W01.0XXA Fall on same level from slipping, tripping and stumbling without subsequent striking against object, initial encounter; Y93.89 Activity, other specified; Y92.89 Other specified places as the place of occurrence of the external cause; Y99.8 Other external cause status
CPT/HCPCS: 71101; 96374; 99283; J1885

== ENCOUNTER 2019-09-17 09:12 | Inpatient (IN) | payer OTHER ==
[~2019-09-17] VITALS: Ht 160 cm; Wt 88.6 kg
[~2019-09-17 09:12] MED LIST changes: -ASPI-1181 PO; +ASPI-1443 PO; -PANT40TA25 PO; +PANT40TA54 PO; +WARF2.5T PO; -WARF2.5T47 PO; +WARF5TAB PO; -WARF5TAB76 PO
[2019-09-17 09:48] LABS: BASOPHILS % (AUTO) 0.5 % (0.0-5.0); EOSINOPHILS % (AUTO) 0.4 % (0.0-8.0); LYMPHOCYTES % (AUTO) 20.2 % (21.0-51.0); MEAN CORPUSCULAR HEMOGLOBIN 29.6 pg (27.0-33.0); MEAN CORPUSCULAR HGB CONC 32.7 g/dL (32.0-36.0); MEAN CORPUSCULAR VOLUME 90.7 fL (79-99); MONOCYTES % (AUTO) 7.1 % (3.0-13.0); NEUTROPHILS % (AUTO) 70.4 % (40.0-77.0); PLATELET COUNT (AUTO) 288 K/uL (130-400); RED BLOOD CELL COUNT(AUTO) 4.96 MIL/uL (4.00-5.50); RED CELL DISTRIBUTION WIDTH 14.9 % (11.0-15.5); WHITE BLOOD COUNT (AUTO) 10.2 K/uL (4.8-10.8)
[2019-09-17 10:02] LABS: INR 3.08 (0.85-1.15); PROTHROMBIN TIME 31.9 SEC (9.6-11.6)
[2019-09-17 10:15] LABS: CREATININE 1.1 mg/dL (0.5-1.5)
[2019-09-17 10:19] LABS: ALBUMIN 3.8 g/dL (3.5-5.0); BILIRUBIN,TOTAL 0.6 mg/dL (0.2-1.0); TOTAL PROTEIN, SERUM 6.8 g/dL (6.0-8.3)
[2019-09-17] MEDS ORDERED: IOHEXOL 350 MG/ML 100ML INFUS..BTL IV ONE (11:38)
[2019-09-17] MEDS ORDERED: LEVOFLOXACIN 750 MG/D5W 150 ML 150 ML ONE (12:47)
[2019-09-17] MEDS ORDERED: METRONIDAZOLE 500MG/100ML BAG 100 ML ONE (12:47)
[2019-09-17] MEDS: SODIUM CHLORIDE 0.9% 1000ML 1,000 ML IV SCH (15:00)
[2019-09-17] MEDS ORDERED: ONDANSETRON HCL 4 MG/2 ML VIAL IVP PRN (15:00)
[2019-09-17] MEDS ORDERED: GLUCAGON 1MG KIT 1 MG ML IM PRN ×2 (15:00→20:30)
[2019-09-17] MEDS ORDERED: DEXTROSE 50%-WATER 50 ML DISP.SYRIN IV PRN ×2 (15:00→20:30)
[2019-09-17 16:20] VITALS: BP 154/84
[2019-09-17] MEDS ORDERED: INSULIN R PO SS1 SQ SCH (16:30)
--- NOTE | 2019-09-17 18:42 | NUR ---
PT PRESENTED WITH AN EPISODE OF BLOODY STOOL, PT VERBALIZED THAT SHE START NOTICING LAST NIGHT.
[2019-09-17 20:08] VITALS: BP 115/65
[2019-09-17] MEDS ORDERED: ALBUTEROL SULFATE 0.083% 2.5 MG/3 ML INH IH PRN (20:15)
[2019-09-17 20:16] LABS: HEMATOCRIT 37.6 % (36-48)
[2019-09-17] MEDS: METRONIDAZOLE 500MG/100ML BAG 100 ML IVPB SCH (20:20)
[2019-09-17] MEDS ORDERED: POTASSIUM CHLORIDE 20MEQ/100ML 100 ML IV PRN (20:30)
[2019-09-17] MEDS ORDERED: POTASSIUM CHLORIDE 20 MEQ ERTAB PO PRN (20:30)
[2019-09-17] MEDS ORDERED: POTASSIUM CHLORIDE 10% ELIXIR 20 MEQ/15 ML UDCUP PO PRN (20:30)
[2019-09-17] MEDS ORDERED: CLONIDINE HCL 0.1 MG TABLET PO PRN (20:30)
[2019-09-17] MEDS ORDERED: POTASSIUM CHLORIDE 10MEQ/100ML 100 ML IV PRN (20:30)
[2019-09-17] MEDS ORDERED: LIDOCAINE HCL-MPF 1% 2ML VIAL IJ PRN ×2 (20:30)
[2019-09-17] MEDS: INSULIN HUMULIN R 100 UNIT/ML 3ML SQ SCH (21:00)
[2019-09-18] VITALS (7 sets, daily range): BP systolic 118–144; BP diastolic 61–74
[2019-09-18] MEDS: METHYLPREDNISOLONE SOD SUCC 125MG/2ML VIAL IVP SCH ×4 (01:08→20:37)
[2019-09-18] MEDS: METOPROLOL TARTRATE 25 MG TAB PO SCH ×3 (01:09→20:37)
[2019-09-18] MEDS: PHYTONADIONE 10 MG/1 ML AMP IM SCH ×2 (01:16→20:27)
[2019-09-18] MEDS: SODIUM CHLORIDE 0.9% 1000ML 1,000 ML IV SCH ×4 (01:17→23:00)
[2019-09-18] MEDS: METRONIDAZOLE 500MG/100ML BAG 100 ML IVPB SCH ×3 (05:30→20:37)
[2019-09-18 05:32] LABS: HEMATOCRIT 38.8 % (36-48); MEAN CORPUSCULAR HEMOGLOBIN 30.8 pg (27.0-33.0); MEAN CORPUSCULAR HGB CONC 33.2 g/dL (32.0-36.0); MEAN CORPUSCULAR VOLUME 92.6 fL (79-99); RED BLOOD CELL COUNT(AUTO) 4.19 MIL/uL (4.00-5.50); RED CELL DISTRIBUTION WIDTH 14.9 % (11.0-15.5); WHITE BLOOD COUNT (AUTO) 8.5 K/uL (4.8-10.8)
[2019-09-18 05:57] LABS: POTASSIUM 4.4 mmol/L (3.5-5.1)
[2019-09-18 06:12] LABS: INR 2.84 (0.85-1.15); PROTHROMBIN TIME 29.5 SEC (9.6-11.6)
[2019-09-18] MEDS: INSULIN HUMULIN R 100 UNIT/ML 3ML SQ SCH ×4 (07:30→20:27)
--- NOTE | 2019-09-18 07:43 | NUR ---
DR CARINE MCLEAN REGARDING CONSULT. PENDING CB
[2019-09-18] MEDS: FAMOTIDINE/PF 20 MG/2 ML VIAL IV SCH (08:39)
--- NOTE | 2019-09-18 08:40 | NUR ---
DR HAWK AWARE OF CONSULT. STATED KEEP PT NPO AND HE WILL REVIEW CHART
[2019-09-18] MEDS ORDERED: PHYTONADIONE 10 MG/1 ML AMP IM SCH (09:00)
[2019-09-18] MEDS ORDERED: SODIUM CHLORIDE 0.9% 50 ML IV ONE (09:21)
[2019-09-18 09:37] LABS: HEMATOCRIT 39.4 % (36-48)
[2019-09-18] MEDS ORDERED: WARF2.5T PO (10:05)
[2019-09-18] MEDS ORDERED: WARF5TAB PO (10:05)
[2019-09-18] MEDS ORDERED: CELE-84 PO (10:08)
[2019-09-18] MEDS ORDERED: GABA-529 PO (10:08)
[2019-09-18] MEDS ORDERED: EPIN0.3P3 IJ (10:08)
[2019-09-18] MEDS ORDERED: PRED5TAB PO ×2 (10:08→10:09)
--- NOTE | 2019-09-18 11:04 | NUR ---
[place], iftikhar uploaded Addendum: 09/18/19 at 1104 by ROBIN POTTER RN CM Amended: Links added.
[2019-09-18] MEDS: LEVOFLOXACIN 500 MG/D5W 100 ML 100 ML IV SCH (11:58)
[2019-09-18 21:04] LABS: HEMATOCRIT 34.4 % (36-48)
[2019-09-19 03:46] VITALS: BP 121/95
[2019-09-19 05:32] LABS: HEMATOCRIT 36.4 % (36-48); MEAN CORPUSCULAR HEMOGLOBIN 29.4 pg (27.0-33.0); MEAN CORPUSCULAR HGB CONC 32.7 g/dL (32.0-36.0); MEAN CORPUSCULAR VOLUME 89.9 fL (79-99); RED BLOOD CELL COUNT(AUTO) 4.05 MIL/uL (4.00-5.50); RED CELL DISTRIBUTION WIDTH 14.3 % (11.0-15.5); WHITE BLOOD COUNT (AUTO) 13.6 K/uL (4.8-10.8)
[2019-09-19] MEDS: METHYLPREDNISOLONE SOD SUCC 125MG/2ML VIAL IVP SCH ×2 (05:40→13:29)
[2019-09-19] MEDS: METRONIDAZOLE 500MG/100ML BAG 100 ML IVPB SCH ×2 (05:40→13:29)
[2019-09-19 05:53] LABS: CREATININE 0.9 mg/dL (0.5-1.5); POTASSIUM 3.5 mmol/L (3.5-5.1)
[2019-09-19] MEDS: INSULIN HUMULIN R 100 UNIT/ML 3ML SQ SCH ×4 (06:40→20:33)
[2019-09-19 07:51] VITALS: BP 137/57
[2019-09-19] MEDS: FAMOTIDINE/PF 20 MG/2 ML VIAL IV SCH (08:42)
[2019-09-19] MEDS: SODIUM CHLORIDE 0.9% 1000ML 1,000 ML IV SCH (08:42)
[2019-09-19] MEDS: METOPROLOL TARTRATE 25 MG TAB PO SCH ×2 (08:46→20:19)
[2019-09-19 08:51] LABS: HEMATOCRIT 36.8 % (36-48)
--- NOTE | 2019-09-19 08:55 | NUR ---
CM NOTE/IA MEET WITH PATIENT IN ROOM. PER PATIENT, LIVES ALONE, HAS PRIVATE PAY CAREGIVER DIALY, SEMI IND WITH ADLS AT TIMES WHEN FEELING TIRED, DRIVES TO APPOINTMENTS, AND FEELS SAFE TO RETURN HOME ONCE DISCHARGED FROM HOSPITAL. Addendum: 09/19/19 at 0857 by CLOVIS NEAL RN CM Amended: Links added.
[2019-09-19 11:56] VITALS: BP 120/59
[2019-09-19] MEDS: LEVOFLOXACIN 500 MG/D5W 100 ML 100 ML IV SCH (13:29)
[2019-09-19] MEDS: METRONIDAZOLE 500 MG TABLET PO SCH (14:52)
--- NOTE | 2019-09-19 15:42 | NUR ---
[id number] patient signed IM Letter, I faxed IM Letter to [phone] and placed in chart under consent tab
[2019-09-19 16:55] VITALS: BP 150/66
[2019-09-19] MEDS ORDERED: METHYLPREDNISOLONE SOD SUCC 125MG/2ML VIAL ONE (19:52)
[2019-09-19] MEDS ORDERED: METRONIDAZOLE 500MG/100ML BAG 0 ML ONE (19:53)
[2019-09-19 20:00] VITALS: BP 123/66
[2019-09-19] MEDS: PHYTONADIONE 10 MG/1 ML AMP IM SCH (20:09)
[2019-09-19] MEDS ORDERED: GABAPENTIN 100 MG CAPSULE PO SCH (21:00)
[2019-09-19] MEDS ORDERED: INSULIN GLARGINE 100 UNITS/ML 10 ML VIAL SQ SCH (21:00)
[2019-09-19 21:29] LABS: HEMATOCRIT 36.7 % (36-48)
[2019-09-20 00:16] VITALS: BP 109/64
[2019-09-20] MEDS: METRONIDAZOLE 500 MG TABLET PO SCH ×3 (00:26→14:02)
[2019-09-20 04:16] VITALS: BP 131/79
[2019-09-20 05:07] LABS: HEMATOCRIT 36.8 % (36-48); MEAN CORPUSCULAR HGB CONC 33.4 g/dL (32.0-36.0); MEAN CORPUSCULAR VOLUME 89.8 fL (79-99); RED BLOOD CELL COUNT(AUTO) 4.1 MIL/uL (4.00-5.50); RED CELL DISTRIBUTION WIDTH 14.5 % (11.0-15.5); WHITE BLOOD COUNT (AUTO) 11.6 K/uL (4.8-10.8)
[2019-09-20 05:19] LABS: INR 1.04 (0.85-1.15); PROTHROMBIN TIME 11.2 SEC (9.6-11.6)
[2019-09-20 05:23] LABS: POTASSIUM 3.4 mmol/L (3.5-5.1)
[2019-09-20] MEDS: INSULIN HUMULIN R 100 UNIT/ML 3ML SQ SCH ×2 (05:26→11:30)
[2019-09-20] MEDS ORDERED: LEVOTHYROXINE 88 MCG TABLET PO SCH (06:30)
[2019-09-20] MEDS ORDERED: NON-FORMULARY MEDICATION 1 EACH (Levothyroxine Sodium 175 MCG) PO SCH (07:30)
[2019-09-20 08:00] VITALS: BP 138/65
[2019-09-20] MEDS ORDERED: LEVO500T2 PO (08:53)
[2019-09-20] MEDS ORDERED: METR-172 PO (08:53)
[2019-09-20] MEDS ORDERED: PRED10TA3 PO (08:53)
[2019-09-20] MEDS ORDERED: PANTOPRAZOLE SODIUM 40 MG TABLET.DR PO SCH (09:00)
[2019-09-20] MEDS ORDERED: POTASSIUM CHLORIDE 20 MEQ ERTAB PO SCH (09:00)
[2019-09-20] MEDS ORDERED: FLUTICASONE/VILANTEROL 1 EACH BLST.W.DEV IH SCH (09:00)
[2019-09-20] MEDS ORDERED: PREDNISONE 20 MG TABLET PO SCH (09:00)
[2019-09-20] MEDS: METOPROLOL TARTRATE 25 MG TAB PO SCH (09:27)
[2019-09-20 12:31] VITALS: BP_SYST 159; BP_SYST 86; BP_DIAS 45; BP_DIAS 80
[2019-09-20 14:06] VITALS: BP 122/74
[2019-09-20] MEDS ORDERED: ISOS20TA7 PO (14:22)
[2019-09-20] MEDS ORDERED: DILT30 PO (14:22)
[2019-09-20] MEDS ORDERED: LEVOFLOXACIN 500 MG TABLET PO SCH (15:00)
== END 2019-09-20 17:30 | disposition home or self-care (01) | DRG 378 ==
LOC: EDH 09:12 → EDHIP 14:29 → OBSVTOIN 14:29 → 3AH 16:19
PROVIDERS: ADMIT Internal Medicine; ATTEND Internal Medicine
PROC: 30233K1 Transfusion of Nonautologous Frozen Plasma into Peripheral Vein, Percutaneous Approach (ICD-10-PCS; principal; 2019-09-18)
DX: K57.33 Diverticulitis of large intestine without perforation or abscess with bleeding (principal); D68.69 Other thrombophilia; K76.0 Fatty (change of) liver, not elsewhere classified; E03.9 Hypothyroidism, unspecified; E11.22 Type 2 diabetes mellitus with diabetic chronic kidney disease; E11.42 Type 2 diabetes mellitus with diabetic polyneuropathy; E78.2 Mixed hyperlipidemia; I13.10 Hypertensive heart and chronic kidney disease without heart failure, with stage 1 through stage 4 chronic kidney disease, or unspecified chronic kidney disease; I25.10 Atherosclerotic heart disease of native coronary artery without angina pectoris; K21.9 Gastro-esophageal reflux disease without esophagitis; K40.20 Bilateral inguinal hernia, without obstruction or gangrene, not specified as recurrent; M19.90 Unspecified osteoarthritis, unspecified site; M81.0 Age-related osteoporosis without current pathological fracture; N18.2 Chronic kidney disease, stage 2 (mild); Z95.828 Presence of other vascular implants and grafts; J30.9 Allergic rhinitis, unspecified; Z79.01 Long term (current) use of anticoagulants; Z88.5 Allergy status to narcotic agent; Z91.010 Allergy to peanuts; Z88.0 Allergy status to penicillin; Z88.2 Allergy status to sulfonamides; Z88.8 Allergy status to other drugs, medicaments and biological substances; Z91.018 Allergy to other foods; I25.2 Old myocardial infarction; Z79.4 Long term (current) use of insulin; Z79.51 Long term (current) use of inhaled steroids; Z79.52 Long term (current) use of systemic steroids; Z80.3 Family history of malignant neoplasm of breast; Z82.3 Family history of stroke; Z82.49 Family history of ischemic heart disease and other diseases of the circulatory system; Z82.5 Family history of asthma and other chronic lower respiratory diseases; Z83.3 Family history of diabetes mellitus; Z86.711 Personal history of pulmonary embolism; Z86.718 Personal history of other venous thrombosis and embolism; Z79.899 Other long term (current) drug therapy
CPT/HCPCS: 36415; 36430; 74177; 80048; 80053; 82550; 82948; 84484; 85014; 85018; 85025; 85027; 85610; 85730; 86850; 86900; 86901; 86927; 93005; 94664; G0378; J1815; J1956; J2930; J3430; J3490; J7030; J7070; P9017; Q9967

== ENCOUNTER 2020-05-09 09:00 | Inpatient (IN) | payer OTHER ==
[~2020-05-09] VITALS: Ht 160 cm; Wt 92.0 kg
[~2020-05-09 09:00] MED LIST changes: -ALBU2.5V2 IH; -ASPI-1443 PO; -CALC400I NASAL; -DILT30 PO; +EPIN0.3P3 IJ; -FLUT1BLS IH; -FURO40TA5 PO; -GABA-529 PO; -INSU100I24 SQ; -ISOS20TA7 PO; -LEVO500T2 PO; -METO25TA6 PO; -NITR0.4T50 SL; -PANT40TA54 PO; -PHEN-846 PO; -POTA20TA12 PO; -PRED10TA3 PO; -TIOT4MIS5 IH; -WARF2.5T PO; -WARF5TAB PO
[2020-05-09 11:31] LABS: BASOPHILS % (AUTO) 0.8 % (0.0-5.0); EOSINOPHILS % (AUTO) 0.8 % (0.0-8.0); HEMATOCRIT 43.8 % (36-48); LYMPHOCYTES % (AUTO) 24.2 % (21.0-51.0); MEAN CORPUSCULAR HEMOGLOBIN 29.8 pg (27.0-33.0); MEAN CORPUSCULAR HGB CONC 32.2 g/dL (32.0-36.0); MEAN CORPUSCULAR VOLUME 92.6 fL (79-99); MONOCYTES % (AUTO) 6.5 % (3.0-13.0); NEUTROPHILS % (AUTO) 66.9 % (40.0-77.0); PLATELET COUNT (AUTO) 290 K/uL (130-400); RED BLOOD CELL COUNT(AUTO) 4.73 MIL/uL (4.00-5.50); RED CELL DISTRIBUTION WIDTH 13.9 % (11.0-15.5); WHITE BLOOD COUNT (AUTO) 8.3 K/uL (4.8-10.8)
[2020-05-09 11:37] LABS: POTASSIUM 3.8 mmol/L (3.5-5.1)
[2020-05-09 11:55] LABS: INR 2.55 (0.85-1.15); PROTHROMBIN TIME 25.7 SEC (9.6-11.6)
[2020-05-09 11:56] LABS: PARTIAL THROMBOPLASTIN TIME 36.6 SEC (26.3-35.5)
[2020-05-10 08:53] VITALS: BP 135/66
[2020-05-10] MEDS ORDERED: INSU100V37 SQ (10:49)
[2020-05-10] MEDS ORDERED: SUCR1TAB2 PO (10:49)
[2020-05-10] MEDS ORDERED: WARF2.5T85 PO (10:49)
[2020-05-10] MEDS ORDERED: WARF-57 PO (10:49)
[2020-05-10] MEDS ORDERED: FURO20TA4 PO (10:49)
[2020-05-10] MEDS ORDERED: LOSA25TA41 PO (10:49)
[2020-05-10] MEDS ORDERED: ISOS20TA7 PO (10:49)
[2020-05-10] MEDS ORDERED: PRED5TAB PO (10:49)
[2020-05-10] MEDS ORDERED: ALBU18HF7 IH (10:50)
[2020-05-10] MEDS ORDERED: GABA-533 PO (10:50)
[2020-05-10] MEDS ORDERED: NITR0.4T50 SL (10:52)
[2020-05-10] MEDS ORDERED: PANT40TA54 PO (10:52)
[2020-05-10] MEDS ORDERED: METO-408 PO (10:52)
[2020-05-13] VITALS (29 sets, daily range): BP systolic 106–157; BP diastolic 59–93
[2020-05-13] MEDS: CLINDAMYCIN 900 MG/D5% WATER 50 ML IV SCH ×5 (06:00→23:03)
[2020-05-13] MEDS ORDERED: SODIUM CHLORIDE 0.9% 1000ML 1,000 ML IV ONE (06:08)
[2020-05-13] MEDS ORDERED: BUPIVACAINE/EPI/PF 0.25% 10ML VIAL IJ ONE (06:48)
[2020-05-13] MEDS ORDERED: THROMBIN-JMI 20000 UNIT KIT TP ONE (06:48)
[2020-05-13] MEDS ORDERED: SUCCINYLCHOLINE CHLORIDE 20 MG/ML 10 ML VIAL ONE (06:50)
[2020-05-13] MEDS ORDERED: LIDOCAINE PF 2% 5ML ABBOJECT ONE (06:50)
[2020-05-13] MEDS ORDERED: MIDAZOLAM HCL 1 MG/ML 2ML VIAL ONE (06:51)
[2020-05-13] MEDS ORDERED: NEOSTIGMINE 5MG/5ML SYR IV ONE (06:51)
[2020-05-13] MEDS ORDERED: DEXAMETHASONE SOD PHOSPHATE 10MG/ML 1ML VIAL ONE ×2 (06:51→07:00)
[2020-05-13] MEDS ORDERED: PROPOFOL 10 MG/ML 20ML VIAL IV ONE (06:51)
[2020-05-13] MEDS ORDERED: GLYCOPYRROLATE 1 MG/5 ML SYRINGE ONE (06:51)
[2020-05-13] MEDS ORDERED: ROCURONIUM 10MG/1ML SYR 10 MG/ML ML ONE (06:52)
[2020-05-13] MEDS ORDERED: ONDANSETRON HCL 4 MG/2 ML VIAL ONE (06:52)
[2020-05-13] MEDS ORDERED: FENTANYL CITRATE PF 50 MCG/1 ML 2ML VIAL ONE ×2 (06:52→08:35)
[2020-05-13] MEDS ORDERED: PHENYLEPHRINE HCL 10 MG/ML 1ML VIAL IV ONE (06:56)
[2020-05-13] MEDS ORDERED: DEXAMETHASONE SOD PHOSPHATE 4 MG/ML 1ML VIAL ONE (07:00)
[2020-05-13 07:16] LABS: INR 1.17 (0.85-1.15); PROTHROMBIN TIME 12.3 SEC (9.6-11.6)
[2020-05-13 07:18] LABS: PARTIAL THROMBOPLASTIN TIME 27.6 SEC (26.3-35.5)
[2020-05-13] MEDS ORDERED: MANNITOL 20% 500ML BAG 500 ML IV ONE (08:42)
[2020-05-13] MEDS ORDERED: INSULIN DEGLUDEC 100 UNIT SQ SCH (11:30)
[2020-05-13] MEDS ORDERED: HYDROCODONE/ACETAMINOPHEN 5/325 MG TAB PO PRN (11:30)
[2020-05-13] MEDS: DEXAMETHASONE SOD PHOSPHATE 4 MG/ML 1ML VIAL IVP SCH ×3 (11:30→23:03)
[2020-05-13] MEDS ORDERED: MORPHINE SULFATE 2 MG/ML 1ML SYG IVP PRN (11:30)
[2020-05-13] MEDS ORDERED: NITROGLYCERIN 0.4 MG SL TAB SL SCH (11:30)
[2020-05-13] MEDS ORDERED: SODIUM CHLORIDE 0.9% 10 ML VIAL IVP PRN (11:30)
[2020-05-13] MEDS ORDERED: ALBUTEROL INHALER 90MCG/INH IH SCH (11:30)
[2020-05-13] MEDS ORDERED: LACTATED RINGERS 1000ML 1,000 ML IV SCH (11:30)
[2020-05-13] MEDS ORDERED: EPINEPHRINE 0.3 MG/0.3 ML PEN IM SCH (11:30)
[2020-05-13] MEDS ORDERED: PROMETHAZINE HCL 25 MG/ML 1ML AMPULE IM PRN (11:30)
[2020-05-13] MEDS: SUCRALFATE 1 GM TABLET PO SCH ×3 (11:57→20:03)
[2020-05-13] MEDS: GABAPENTIN 300 MG CAPSULE PO SCH ×2 (11:58→20:03)
[2020-05-13] MEDS: LOSARTAN 50 MG TABLET PO SCH (12:01)
--- NOTE | 2020-05-13 16:02 | NUR ---
RECEIVED PT FROM OR AFTER SURGERY WITH DR RINCON.AT THE MOMENT PT LOOKS AAO X3, NO PAIN, NO RESPIRATORY DISTRESS. GAUZE AND BANDAGES LOOKS CLEAN WITH NO ACTIVE BLEEDING PRESENT ON ARRIVAL. V/S ARE STABLE, PT WAS EDUCATED, ALL QUESTIONS ANSWERED.
[2020-05-13] MEDS: METOPROLOL SUCCINATE 50 MG TAB.SR.24H PO SCH (20:03)
--- NOTE | 2020-05-13 20:05 | NUR ---
MEDS SHIFT ASSESSMENT DONE, PLEASE REFER TO CHART. RE-POSITIONED COMFORTABLY IN BED WITH HOB ELEVATED. DRESSING TO NECK AREA DRY AND INTACT WITH SOFT COLLAR ON. DUE MEDS ADMINISTERED, TOLERATED WELL. SALINE LOCKED IVF, PT TOLERATING PO AT THIS TIME. O2 DISCONTINUED, NO RESPIRATORY DISTRESS NOTED.CALL LIGHT WITHIN REACH. WILL MONITOR PT. PCP MADE AWARE THAT PT IS READY TO WALK FOR THE NIGHT. Addendum: 05/13/20 at 2274 by DALE GOLDMAN RN RN Amended: Links added.
--- NOTE | 2020-05-13 21:10 | NUR ---
PAIN PT ALREADY WALKED ON THE FLOOR AND IS BACK IN ROOM, SITTING DOWN IN CHAIR. POST PAINS VERBALIZED. MEDICATED WITH NORCO PO. KEPT RESTED AND COMFORTABLE. WILL RE-ASSESS PT.
--- NOTE | 2020-05-13 22:00 | NUR ---
WALK PCP INFORMED SILK SCREEN PRINTER MACHINE THAT PT HAD ALREADY HER SECOND WALK FOR THE NIGHT AND IS BACK IN BED. PT RESTING AND NO COMPLAINTS VERBALIZED. WILL CONTINUE TO MONITOR. CALL LIGHT WITHIN REACH.
--- NOTE | 2020-05-14 02:00 | NUR ---
ROUNDS PT RESTING WELL, FAIRLY ASLEEP. NO DISTRESS NOTED. KEPT UNDISTURBED FOR NOW. CALL LIGHT WITHIN REACH.
[2020-05-14 04:00] VITALS: BP 121/70
[2020-05-14] MEDS: CLINDAMYCIN 900 MG/D5% WATER 50 ML IV SCH ×2 (05:05→08:06)
--- NOTE | 2020-05-14 05:05 | NUR ---
F/C PT ALREADY AWAKE. DENIES ANY NEEDS AT THIS TIME. NO DISTRESS NOTED. DUE IV MEDS ADMINISTERED. F/C DISCONTINUED WITH CATHETER INTACT. PT DUE TO VOID. INSTRUCTED PT TO CALL FOR STAFF WHEN IN NEED TO URINATE ALREADY. CALL LIGHT WITHIN REACH.
[2020-05-14] MEDS: DEXAMETHASONE SOD PHOSPHATE 4 MG/ML 1ML VIAL IVP SCH ×2 (05:06→10:35)
--- NOTE | 2020-05-14 06:20 | NUR ---
WALK PT WALKED THE HALLWAY AND TOLERATED ACTIVITY WELL. STILL NO URINE OUTPUT AT THIS TIME. FOR MORE CARE.
[2020-05-14] MEDS: SUCRALFATE 1 GM TABLET PO SCH ×2 (06:32→11:30)
[2020-05-14] MEDS ORDERED: LEVOTHYROXINE 100 MCG TABLET PO SCH (07:30)
[2020-05-14] MEDS ORDERED: PANTOPRAZOLE SODIUM 40 MG TABLET.DR PO SCH (07:30)
[2020-05-14] MEDS ORDERED: LEVOTHYROXINE 75 MCG TABLET PO SCH (07:30)
[2020-05-14 07:56] VITALS: BP 115/53
[2020-05-14] MEDS ORDERED: FUROSEMIDE 20 MG TABLET PO SCH (09:00)
[2020-05-14] MEDS ORDERED: PREDNISONE 5 MG TABLET PO SCH (09:00)
[2020-05-14] MEDS ORDERED: ISOSORBIDE MONONITRATE 20 MG TABLET PO SCH (09:00)
[2020-05-14] MEDS: METOPROLOL SUCCINATE 50 MG TAB.SR.24H PO SCH (09:21)
[2020-05-14] MEDS: LOSARTAN 50 MG TABLET PO SCH (09:21)
[2020-05-14] MEDS: GABAPENTIN 300 MG CAPSULE PO SCH (09:22)
[2020-05-14 11:30] VITALS: BP 124/66
--- NOTE | 2020-05-14 11:45 | NUR ---
DISCHARGE INSTRUCTIONS GIVEN AND EXPLAINED UTILIZING TEACH BACK METHOD, VERBALIZED UNDERSTANDING. DRESSING CHANGE DONE WITH BOBBY INTACT, NO ACTIVE DRAINAGE, NO REDNESS OR SWELLING. TOLERATED PROCEDURE WELL. PATIENT WAITING FOR HER RIDE.
[2020-05-14 23:25] VITALS: BP 128/67
== END 2020-05-14 14:00 | disposition home or self-care (01) | DRG 473 ==
LOC: EDSTATUS 09:00 → DAHIP 05-13 05:32 → 3BH 05-13 14:55
PROVIDERS: ADMIT Neurological Surgery; ATTEND Neurological Surgery
PROC: 0RG20K0 Fusion of 2 or more Cervical Vertebral Joints with Nonautologous Tissue Substitute, Anterior Approach, Anterior Column, Open Approach (ICD-10-PCS; principal; 2020-05-13 07:30)
PROC: 0RB30ZZ Excision of Cervical Vertebral Disc, Open Approach (ICD-10-PCS; 2020-05-13 07:30)
PROC: 4A11X4G Monitoring of Peripheral Nervous Electrical Activity, Intraoperative, External Approach (ICD-10-PCS; 2020-05-13 07:30)
DX: M48.02 Spinal stenosis, cervical region (principal); M25.78 Osteophyte, vertebrae; M54.12 Radiculopathy, cervical region; J45.909 Unspecified asthma, uncomplicated; G43.909 Migraine, unspecified, not intractable, without status migrainosus; Z20.828 Contact with and (suspected) exposure to other viral communicable diseases; I10 Essential (primary) hypertension; K21.9 Gastro-esophageal reflux disease without esophagitis; E11.9 Type 2 diabetes mellitus without complications; Z86.711 Personal history of pulmonary embolism; Z79.01 Long term (current) use of anticoagulants; Z88.5 Allergy status to narcotic agent; Z88.0 Allergy status to penicillin; Z88.8 Allergy status to other drugs, medicaments and biological substances; Z68.35 Body mass index [BMI] 35.0-35.9, adult
CPT/HCPCS: 36415; 72020; 80051; 82948; 85025; 85610; 85730; A4606; G0378; J0330; J1100; J2001; J2250; J2370; J2405; J2704; J2710; J3010; J3490; J7030; J7512; U0003